=== PATIENT | female | born 1980 | race African-American/Black ===

== ENCOUNTER 2017-02-13 07:00 | Emergency (ER) | payer OTHER ==
--- NOTE | ~2017-02-13 | EKG ---
PATIENT: JENNIFER CRABTREE UNIT #: [id number] Ventricular Rate: 75 BPM Atrial Rate: 75 BPM P-R Interval: 202 ms QRS Duration: 84 ms Q-T Interval: 410 ms QTC Calculation(Bezet): 457 ms P [place]: 51 degrees Calculated R [place]: 11 degrees Calculated T [place]: 23 degrees Diagnosis Line: Normal sinus rhythm Diagnosis Line: Moderate voltage criteria for LVH, may be normal Diagnosis Line: variant Diagnosis Line: Borderline ECG Diagnosis Line: No previous ECGs available Diagnosis Line: Confirmed by YOLANDA MATHIS MD ([id number]) on 02/14/2017 Diagnosis Line: 6:01:23 AM INTERPRETING MD: DEL ADHIKARI
--- NOTE | ~2017-02-13 | CT16 ---
[facility] A Service of [facility] RADIOLOGY TEXT RESULTS PATIENT: JENNIFER CRABTREE LOCATION: [facility] : 78 UNIT #: [id number] AGE: [address]: Hussein Casas MD SEX: F ORDER DR: [id number] [facility] [address] [place], [place] [address] [id number] MR#: [id number] #: [id number] NAME: JENNIFER CRABTREE : 1980 SEX: F STUDY DATE/TIME: 02/13/2017 9:12 UNIT: [facility] ROOM: STUDY DESCRIPTION: CT Angio Chest for PE Attending Physician: Hussein Casas M.D. Ordering Physician: [id number] Marcial Casas MEDICAL IMAGING REPORT This report is preliminary unless electronic signature is present EXAM CT chest with contrast, pulmonary arteriography protocol, 02/13/2017. HISTORY 37-year-old female in the ED complaining of 2-day history of shortness of air, cough and lightheadedness. She describes a past history of PE. No prior chest imaging here. TECHNIQUE CT examination of the chest with IV contrast using pulmonary arteriography protocol. 3-D CTA images of the pulmonary arteries were reformatted in multiple planes. This CT exam was performed with one or more of the following radiation dose reduction techniques: automatic exposure control, adjustment of mA and/or kV according to patient size, and iterative reconstruction. FINDINGS No pulmonary embolism is demonstrated. Thoracic aorta is normal in caliber with no aneurysm or dissection. Heart size is normal, there is no pericardial effusion. The lungs are expanded and clear. No pleural effusion. Enlarged lymph nodes in the right hilum and subcarinal middle mediastinum containing benign granulomatous calcifications. No rib fracture or other chest wall lesion. Limited upper abdominal images are unremarkable. IMPRESSION 1. No acute abnormality within the chest. No evidence of pulmonary embolism. Normal-caliber thoracic aorta. Lungs clear. [facility] A Service of [facility] RADIOLOGY TEXT RESULTS PATIENT: JENNIFER CRABTREE LOCATION: [facility] : 78 UNIT #: [id number] AGE: [address]: Hussein Casas MD SEX: F ORDER DR: 2. Enlarged, benign right hilar and middle mediastinal lymph nodes containing granulomatous calcification. Dictated by... Ford Mcclellan M.D. THIS IS AN ELECTRONICALLY VERIFIED REPORT Ford Mcclellan M.D. at 02/13/2017 1:32 PM GARO/blaire TD: 02/13/2017 10:37 JOB #: [id number] MEDICAL IMAGING REPORT Page 1 of 1 COPY
[2017-02-13 06:48] LABS: POC - CKMB <1.0 ng/mL (0.0-7.9); POC - TROPONIN <0.05 ng/mL (<=0.05)
[2017-02-13 07:40] LABS: BASOPHIL% 0.2 % (0-2.5); EOSINOPHIL# 0.1 X10e3 (0-0.7); EOSINOPHIL% 0.8 % (0.0-7.0); HEMATOCRIT 37.4 % (35.0-45.0); HEMOGLOBIN 11.6 gm/dL (12.0-16.0); LYMPHOCYTE# 3.8 X10e3 (1.0-3.5); LYMPHOCYTE% 36.7 % (17.0-45.0); MEAN CORPUSCULAR HEMOGLOBIN 26.1 PG (28-34); MEAN PLATELET VOLUME 8.4 FL (6.5-11.5); MONOCYTE# 0.8 X10e3 (0-1.0); MONOCYTE% 7.3 % (3.0-12.0); NEUTROPHIL# 5.7 X10e3 (1.5-7.1); PLATELET COUNT 324 X10e3 (140-420); RED BLOOD COUNT 4.45 X10e (3.90-5.30); RED CELL DISTRIBUTION WIDTH 14.2 % (11.0-15.5); WHITE BLOOD COUNT 10.4 X10e3 (4.0-10.5)
[2017-02-13 07:46] LABS: DIFF IND NO
[2017-02-13 08:06] LABS: ALBUMIN SERUM 3.3 g/dL (3.5-5.0); BILIRUBIN, DIRECT 0.1 mg/dL (0.0-0.2); BILIRUBIN,INDIRECT 0.2 mg/dL (0.0-0.9); BILIRUBIN,TOTAL 0.3 mg/dL (0.2-2.0); CALCIUM SERUM 8.5 mg/dL (8.4-10.2); CREATININE SERUM 0.8 mg/dL (0.6-1.4); GLOM FILT RATE Estimated 108.5 mL/min (>60); PROTEIN TOTAL SERUM 7.8 g/dL (6.0-8.3)
== END 2017-02-13 11:20 | disposition home or self-care (01) ==
LOC: CED 07:00
PROVIDERS: Emergency Medicine
DX: J40 Bronchitis, not specified as acute or chronic (principal); R04.2 Hemoptysis; Z86.711 Personal history of pulmonary embolism
CPT/HCPCS: 36415; 71275; 80048; 80076; 82553; 83880; 84484; 84703; 85025; 93005; 99284; Q9967